=== PATIENT | female | born 1935 ===

== ENCOUNTER 2021-02-06 08:22 | Day surgery (SDC) | payer MEDICARE ==
[2021-02-06] VITALS (7 sets, daily range): BP systolic 113–160; BP diastolic 45–97; PULSE 62–109; TEMP 98.1
[~2021-02-06] VITALS: Ht 165.1 cm; Wt 62.3 kg
[2021-02-06 09:02] LABS: HEMATOCRIT 43.8 % (37.0-47.0); MEAN CELL VOLUME 83 fl (80.0-100.0); MEAN CORPUSCULAR HEMOGLOBIN 27 pg (27.0-31.0); MEAN CORPUSCULAR HGB CONC 32 g/dl (33.0-37.0); MEAN PLATELET VOLUME 9.9 fl (7.4-10.4); PLATELET COUNT 179 K/mm3 (130-400); RED BLOOD COUNT 5.28 M/mm3 (4.10-5.30); REDCELL DISTRIBUTION WIDTH-CV 14.1 % (11.5-14.5)
[2021-02-06 09:08] LABS: INR 1.8 (0.8-3.0); PROTHROMBIN TIME 20.2 SECONDS (9.7-12.8)
[2021-02-06 09:11] LABS: PARTIAL THROMBOPLASTIN TIME 39.6 SECONDS (26.0-37.0)
[2021-02-06 09:12] LABS: CALCIUM 9.3 mg/dL (8.4-10.2); CREATININE, serum 0.78 (0.52-1.25); POTASSIUM 4.1 mmol/L (3.4-5.0)
[2021-02-06] MEDS ORDERED: LASIX 40MG TABL40 MG PO (09:34)
[2021-02-06] MEDS ORDERED: MACROBID 1100 MG/CAP PO (09:37)
[2021-02-06] MEDS ORDERED: TAMBOCOR50 MG PO (09:38)
[2021-02-06] MEDS ORDERED: PROTONIX20 MG PO (09:38)
[2021-02-06] MEDS ORDERED: SYNTHROID 0.0.025 MG PO (09:39)
[2021-02-06] MEDS ORDERED: ZOCOR 20MG20 MG PO (09:39)
[2021-02-06] MEDS ORDERED: 00186-0372-20 IH (09:40)
[2021-02-06] MEDS ORDERED: CALCIUM 600/VIT1 CA1 PO (09:41)
[2021-02-06] MEDS ORDERED: B COMPLEX #11 TA1 PO (09:42)
[2021-02-06] MEDS ORDERED: ELIQUIS 5MG PO (09:42)
[2021-02-06] MEDS ORDERED: ZEBETA 5MG5 MG PO (09:43)
[2021-02-06] MEDS ORDERED: K-TAB20 PO (09:44)
[2021-02-06 10:16] LABS: THYROID STIMULATING HORMONE 5.998 uIU/mL (0.350-4.940)
[2021-02-06] MEDS ORDERED: PACERONE400 MG PO (11:20)
[2021-02-06] MEDS ORDERED: LIPITOR20 MG PO (11:22)
--- NOTE | 2021-02-06 12:45 | NUR ---
Discharge instructions given to pt.Pt verbalizes understanding.INt removed,catheter tip intact.Pt escorted out via wheelchair by this nurse.
== END 2021-02-06 14:09 ==
LOC: COL.CAR 08:22
PROVIDERS: Internal Medicine Cardiovascular Disease
DX: I48.0 Paroxysmal atrial fibrillation (principal); I08.3 Combined rheumatic disorders of mitral, aortic and tricuspid valves; I45.10 Unspecified right bundle-branch block; I27.20 Pulmonary hypertension, unspecified; K21.9 Gastro-esophageal reflux disease without esophagitis; E78.5 Hyperlipidemia, unspecified; J45.909 Unspecified asthma, uncomplicated; F41.9 Anxiety disorder, unspecified; I73.9 Peripheral vascular disease, unspecified; Z79.01 Long term (current) use of anticoagulants; Z79.899 Other long term (current) drug therapy; Z87.891 Personal history of nicotine dependence
CPT/HCPCS: J2704; J7120

== ENCOUNTER 2024-01-26 07:58 | Day surgery (SDC) | payer MEDICARE ==
[~2024-01-26] VITALS: Ht 165.2 cm; Wt 61.3 kg
[~2024-01-26 07:58] MED LIST: 00186-0372-20 IH; B COMPLEX #11 TA1 PO; CALCIUM 600/VIT1 CA1 PO; ELIQUIS 5MG PO; K-TAB20 PO; LASIX 40MG TABL40 MG PO; LIPITOR20 MG PO; LR 1,000 ML IV SCH; MACROBID 1100 MG/CAP PO; PACERONE400 MG PO; PROTONIX20 MG PO; SYNTHROID0.075 MG/T PO; TAMBOCOR50 MG PO; ZEBETA 5MG5 MG PO; ZOCOR 20MG20 MG PO
[2024-01-26 08:37] VITALS: BP 134/75; PULSE 78; TEMP 98.2
[2024-01-26] MEDS ORDERED: PACERONE100 MG PO (08:43)
[2024-01-26] MEDS ORDERED: ZOLOFT 100MG100 MG PO (08:45)
[2024-01-26 08:47] LABS: HEMATOCRIT 42.8 % (37.0-47.0); MEAN CELL VOLUME 79 fl (80.0-100.0); MEAN CORPUSCULAR HEMOGLOBIN 24 pg (27-31); MEAN CORPUSCULAR HGB CONC 30 g/dl (33.0-37.0); MEAN PLATELET VOLUME 9.8 fl (7.4-10.4); PLATELET COUNT 190 K/mm3 (130-400); RED BLOOD COUNT 5.41 M/mm3 (4.10-5.30)
[2024-01-26] MEDS ORDERED: OSCAL 500 TAB500 MG PO (08:48)
[2024-01-26] MEDS ORDERED: VITAMIN C500 MG PO (08:49)
[2024-01-26] MEDS ORDERED: NATURAL IRON65 MG PO (08:49)
[2024-01-26 08:54] LABS: INR 1.8 (0.8-3.0); PROTHROMBIN TIME 19.5 SECONDS (9.7-12.8)
[2024-01-26 08:56] LABS: PARTIAL THROMBOPLASTIN TIME 43.1 SECONDS (26.0-37.0)
[2024-01-26 09:04] LABS: CALCIUM 9.7 mg/dL (8.4-10.2); CREATININE, serum 0.89 mg/dL (0.57-1.11); MAGNESIUM 2.2 mg/dL (1.6-2.6); POTASSIUM 3.6 mEq/L (3.5-4.5)
[2024-01-26] MEDS ORDERED: Lidocaine PF 2% (20 MG/ML) 5 ML VIAL ONE (09:06)
[2024-01-26 09:27] LABS: THYROID STIMULATING HORMONE 3.617 uIU/mL (0.350-4.940)
[2024-01-26 09:30] VITALS: BP 135/70; PULSE 64
[2024-01-26 09:45] VITALS: BP 159/71; PULSE 60
[2024-01-26] MEDS ORDERED: PACERONE200 MG PO (09:58)
[2024-01-26 10:00] VITALS: BP 174/80
[2024-01-26 10:15] VITALS: BP 171/77; PULSE 65
[2024-01-26 10:30] VITALS: BP 181/82; PULSE 61
--- NOTE | 2024-01-26 10:35 | NUR ---
DC instructions reviewed with pt and daughters. All express understanding. Pt has rested comfortably following procedure, visiting with daughters. She has had a cup of water, swallowing without issue. She refused snack, stating they will go out for lunch. Dr Boyer aware that BPs have been more elevated during recovery period, no new orders given. Pt is assisted to wheelchair with standby assist, moving slowly, stating she still feels a little whoozy, but does states she feels ready to go. IV DC'd, site wrapped with coban. She is assisted out to daughter's car with belongings.
== END 2024-01-26 10:35 | disposition home or self-care (01) ==
LOC: COL.CAR 07:58
PROVIDERS: Internal Medicine Cardiovascular Disease
DX: I48.91 Unspecified atrial fibrillation (principal)
CPT/HCPCS: J2704; J7120